=== PATIENT | male | born 1955 | race Two or more races ===

== ENCOUNTER 2019-01-01 15:59 | Inpatient (IN) | payer OTHER | END 2019-01-07 12:20 | disposition home or self-care (01) | LOC: ER 15:59 → TELE 19:07 → TELE-WESTW 23:00 | DX: N13.2 Hydronephrosis with renal and ureteral calculous obstruction (principal); N17.0 Acute kidney failure with tubular necrosis; R16.0 Hepatomegaly, not elsewhere classified; K76.0 Fatty (change of) liver, not elsewhere classified; K40.20 Bilateral inguinal hernia, without obstruction or gangrene, not specified as recurrent; I10 Essential (primary) hypertension; Z82.49 Family history of ischemic heart disease and other diseases of the circulatory system; Z87.442 Personal history of urinary calculi; Z85.46 Personal history of malignant neoplasm of prostate; Z92.3 Personal history of irradiation ==